=== PATIENT | female | born 1970 | race Two or more races ===

== ENCOUNTER 2020-09-09 10:26 | Outpatient (CLI) | payer OTHER | END 2020-09-09 14:53 | disposition home or self-care (01) | LOC: PPH VACUNA 10:26 | DX: Z23 Encounter for immunization (principal) ==

== ENCOUNTER → 2024-05-23 | Outpatient (CLI) | payer OTHER | END | disposition home or self-care (01) | LOC: SONOGRAMA 08:44 | DX: M79.641 Pain in right hand (principal); G56.01 Carpal tunnel syndrome, right upper limb ==